=== PATIENT | male | born 1955 | race Caucasian/White ===

== ENCOUNTER 2017-04-05 07:25 | Day surgery (SDC) | payer BC ==
[2017-03-30 16:44] VITALS: BMI 45.3
[2017-04-05] MEDS ORDERED: PROPOFOL 20 ML ONE ×2 (07:28)
[2017-04-05] MEDS ORDERED: AMPICILLIN 2 GM/100 ML BAG (PRE-DOCKED) IVPB ONE (07:30)
[2017-04-05] MEDS ORDERED: GENTAMICIN 80MG PREMIX BAG IVPB ONE (07:50)
[2017-04-05] MEDS ORDERED: LIDOCAINE HCL/PF 2% SDV 5ML VIAL ONE (08:00)
[2017-04-05 09:20] VITALS: BP 118/62; PULSE 70; TEMP 98
== END 2017-04-05 09:21 | disposition home or self-care (01) ==
LOC: FASU-ENDO 07:25
PROVIDERS: ATTEND Internal Medicine Gastroenterology
PROC: 0DJD8ZZ Inspection of Lower Intestinal Tract, Via Natural or Artificial Opening Endoscopic (ICD-10-PCS; principal; 2017-04-05 08:27)
DX: Z86.010 Personal history of colon polyps (principal)

== ENCOUNTER 2022-07-21 12:22 | Emergency (ER) | payer BC ==
[2022-07-21 12:44] VITALS: BP 132/86; PULSE 81; RESP 16; TEMP 98.7; BMI 44.0
== END 2022-07-21 13:19 | disposition home or self-care (01) ==
LOC: FER 12:22
DX: S91.302A Unspecified open wound, left foot, initial encounter (principal); Y99.8 Other external cause status
CPT/HCPCS: 87070; 87076; 87186; 87205; 99283-25; C9803-CS; U0003; U0005

== ENCOUNTER 2023-09-06 08:24 | Day surgery (SDC) | payer OTHER ==
[2023-09-01 11:28] VITALS: BMI 47.5
[2023-09-06 11:36] VITALS: BP 132/95; PULSE 62; RESP 18; TEMP 97.1
== END 2023-09-06 10:26 | disposition home or self-care (01) ==
LOC: FASU-ENDO 08:24
PROVIDERS: ATTEND Internal Medicine Gastroenterology
PROC: 0DJD8ZZ Inspection of Lower Intestinal Tract, Via Natural or Artificial Opening Endoscopic (ICD-10-PCS; principal; 2023-09-06 09:40)
DX: Z12.11 Encounter for screening for malignant neoplasm of colon (principal); K57.30 Diverticulosis of large intestine without perforation or abscess without bleeding; Z86.010 Personal history of colon polyps